=== PATIENT | female | born 1940 | race Caucasian/White ===

== ENCOUNTER 2024-01-27 10:02 | Inpatient (IN) | payer MEDICARE, OTHER ==
[2024-01-27] VITALS (8 sets, daily range): BP systolic 115–136; BP diastolic 52–65
[~2024-01-27] VITALS: Ht 167.6 cm; Wt 60.2 kg
[2024-01-27] MEDS ORDERED: HydrALAZINE HCl 20 MG / ML 1ML Vial IV ONE (10:20)
[2024-01-27] MEDS ORDERED: Ondansetron HCl 2 MG / ML 2ML Vial IV ONE (10:20)
[2024-01-27] MEDS ORDERED: Metoclopramide HCl 5MG / ML 2ML Vial IV ONE (10:25)
[2024-01-27 10:29] LABS: BASOPHILS ABSOLUTE AUTO 0.06 K/mm3 (0.00-0.23); BASOPHILS PERCENT AUTO 1 % (0-2); EOSINOPHILS ABSOLUTE AUTO 0.13 K/mm3 (0.00-0.68); EOSINOPHILS PERCENT AUTO 1 % (0-6); Hematocrit 44.3 % (33.0-51.0); Hemoglobin 14.6 g/dL (11.5-16.0); IMMATURE GRAN ABSOLUTE AUTO 0.07 K/mm3 (0.00-0.10); IMMATURE GRAN PERCENT AUTO 1 % (0-1); LYMPHOCYTES ABSOLUTE AUTO 1.14 K/mm3 (0.84-5.20); LYMPHOCYTES PERCENT AUTO 9 % (21-46); MONOCYTES ABSOLUTE AUTO 0.67 K/mm3 (0.16-1.47); MONOCYTES PERCENT AUTO 6 % (4-13); Mean Corpuscular HGB 31.1 pg (26.0-34.0); Mean Corpuscular Volume 95 fL (80-100); Mean Platelet Volume 11.3 fL (9.1-12.4); NEUTROPHILS PERCENT AUTO 83 % (41-73); Platelet Count 192 K/mm3 (150-400); RDW Coefficient Variation 12.8 % (11.7-14.2); RDW Standard Deviation 44.4 fL (35.1-46.3); Red Blood Cell Count 4.69 M/mm3 (3.80-5.20); White Blood Cell Count 12.07 K/mm3 (4.00-11.30)
[2024-01-27] MEDS ORDERED: EUTHYROX75 MC1 PO (10:36)
[2024-01-27] MEDS ORDERED: KLONOPIN0.5 M9 PO (10:36)
[2024-01-27 10:46] LABS: Albumin, Blood 3.9 g/dL (3.4-5.0); Albumin/Globulin Ratio 1.1 (0.8-1.8); Bilirubin, Total 0.6 mg/dL (0.1-1.0); Bun/Creatinine Ratio 24.4 (12.0-20.0); Calcium, Blood 8.8 mg/dL (8.5-10.1); Creatinine, Blood 0.74 mg/dL (0.40-1.00); Globulin, Blood 3.6 g/dL (2.2-4.0); Potassium, Blood 4.2 mmol/L (3.5-5.5); Total Protein, Blood 7.5 g/dL (6.4-8.2)
[2024-01-27] MEDS ORDERED: Midazolam HCl 1MG / ML 2ML Vial IV ONE (11:15)
[2024-01-27] MEDS ORDERED: Droperidol 5 mg/2 ml Vial IV ONE (13:05)
[2024-01-27] MEDS ORDERED: FLU VACC TS2024-25(6MOS UP)/PF 45 MCG/0.5 ML SYRINGE IM ONE (13:25)
[2024-01-27] MEDS ORDERED: LORazepam 1 MG Tab PO PRN (15:35)
[2024-01-27] MEDS ORDERED: ClonazePAM 0.5 MG Tab PO PRN (16:25)
[2024-01-27] MEDS ORDERED: HydrALAZINE HCl 20 MG / ML 1ML Vial IV PRN (16:40)
--- NOTE | 2024-01-27 18:37 | NUR ---
SHIFT SUMMARY PT A&O X4, SELF/PLACE/SITUATION/TIME, PT OBEYS COMMANDS, ABLE TO MAKE NEEDS KNOWN. PT REPORTS DIZZINESS AND NAUSEA WITH ACTIVITY, LYING FLAT SEEMS TO BE THE ONLY THING THAT EASES THOSE SYMPTOMS, PERRLA WNL, NIH STROKE SCALE 0. LUNG CLEAR T/O, PT SPO2 GREATER THAN 95% ON RA. CONTINOUS CARDIAC MONITORING, SINUS RHYTHM, RATE 70-80'S, BP ELEVATED UPON ADMISSION AND TRENDING DOWN, UPON ARRIVED TO THE UNIT BP ELEVATED AND ATIVAN GIVEN TO TOLERATE MRI DUE TO CLAUSTROPHOBIA, BP WNL AFTER SETTLING BACK INTO ROOM. PUREWICK IN PLACE CONNECTED TO LOW SUCTION. SCD'S TO BLE. PT RESTING IN BED NO RESPRITORY DISTRESS NOTED. CALL LIGHT IN REACH, BED LOWEST POSITION, AWAITING TO GIVE REPORT TO COMING RN. PT REPORTED THAT HER MEDICATIONS AT HOME WERE MAKING HER FEEL DIZZY AND CAUSING HYPOTENTION, AND THAT IS HER REASON FOR STOPPING SOME OF HER MEDICATIONS. PT HAD CHEST X-RAY, HEAD CT, AND
[2024-01-27] MEDS ORDERED: METOPROLOL SUCC25 MG PO (21:49)
[2024-01-27] MEDS ORDERED: LOSA50 PO (21:50)
--- NOTE | 2024-01-27 23:16 | NUR ---
2ML AIR REMOVED, SITE REMAINS UNCHANGED. NO S/S BLEEDING/HEMATOMA.
[2024-01-28] VITALS (10 sets, daily range): BP systolic 122–176; BP diastolic 61–96
--- NOTE | 2024-01-28 00:26 | NUR ---
PT HAD ONE EPISODE OF EMESIS AFTER BECOMING DIZZY WHEN HOB RAISED TO TAKE SIPS OF WATER.
--- NOTE | 2024-01-28 00:38 | NUR ---
CALL PLACED TO DR. ROBERTS REGARDING PT NAUSEA/VOMITING. ORDER RECEIVED FOR 1 TIME DOSE OF 10MG IV METOCLOPRAMIDE.
[2024-01-28] MEDS ORDERED: Metoclopramide HCl 5MG / ML 2ML Vial IV ONE ×2 (00:40→01:00)
[2024-01-28] MEDS ORDERED: Metoclopramide HCl 5MG / ML 2ML Vial IV PRN (01:00)
--- NOTE | 2024-01-28 03:24 | NUR ---
PT REPORTS IMPROVED NAUSEA AND NO EMESIS @0145. PT DOES ENDORSE ANXIETY AND IS GIVEN MEDICATIONS FOR THAT.
--- NOTE | 2024-01-28 03:25 | NUR ---
PT NOW RESTING COMFORTABLY WITH EYES CLOSED. VISIBLE RESPIRATIONS SEE WNL.
[2024-01-28 05:03] LABS: BASOPHILS ABSOLUTE AUTO 0.03 K/mm3 (0.00-0.23); BASOPHILS PERCENT AUTO 0 % (0-2); EOSINOPHILS ABSOLUTE AUTO 0.03 K/mm3 (0.00-0.68); EOSINOPHILS PERCENT AUTO 0 % (0-6); Hemoglobin 13.8 g/dL (11.5-16.0); IMMATURE GRAN ABSOLUTE AUTO 0.06 K/mm3 (0.00-0.10); IMMATURE GRAN PERCENT AUTO 0 % (0-1); LYMPHOCYTES ABSOLUTE AUTO 1.15 K/mm3 (0.84-5.20); LYMPHOCYTES PERCENT AUTO 8 % (21-46); MONOCYTES ABSOLUTE AUTO 1.11 K/mm3 (0.16-1.47); MONOCYTES PERCENT AUTO 8 % (4-13); Mean Corpuscular HGB 31.5 pg (26.0-34.0); Mean Corpuscular HGB Conc 32.1 g/dL (31.5-36.5); Mean Corpuscular Volume 98 fL (80-100); Mean Platelet Volume 12.3 fL (9.1-12.4); NEUTROPHILS ABSOLUTE AUTO 11.38 K/mm3 (1.96-9.15); NEUTROPHILS PERCENT AUTO 83 % (41-73); Platelet Count 151 K/mm3 (150-400); RDW Standard Deviation 47.4 fL (35.1-46.3); Red Blood Cell Count 4.38 M/mm3 (3.80-5.20); White Blood Cell Count 13.76 K/mm3 (4.00-11.30)
[2024-01-28 05:41] LABS: Albumin, Blood 3.7 g/dL (3.4-5.0); Albumin/Globulin Ratio 1.1 (0.8-1.8); Bilirubin, Total 0.6 mg/dL (0.1-1.0); Calcium, Blood 9.1 mg/dL (8.5-10.1); Creatinine, Blood 1.08 mg/dL (0.40-1.00); Globulin, Blood 3.5 g/dL (2.2-4.0); Potassium, Blood 4.4 mmol/L (3.5-5.5); Total Protein, Blood 7.2 g/dL (6.4-8.2)
[2024-01-28] MEDS ORDERED: Levothyroxine Sodium 0.075 MG Tab PO SCH (06:00)
--- NOTE | 2024-01-28 06:34 | NUR ---
PT VITAL SIGNS REMAINED STABLE THROUGH THE SHIFT, NO PRN ANTIHYPERTENSIVE GIVEN. PT WAS GIVEN REGLAN X1 AND CLONZEPAM X1 FOR NAUSEA AND ANXIETY. PT WAS ABLE TO REST AFTER THOSE MEDICATIONS. PT CONTINUES TO ENDORSE VERTIGO. PT MAEW AND HAS GOOD PULSES IN ALL EXTREMITIES. PT CONTINUES TO HAVE NYSTAGMUS B/L EYES. DIZZINESS INCREASES WHEN PATIENT HOB IS ELEVATED. PT HAD URINARY RETENTION AND WAS STRAIGHT CATHED X1 WITH GOOD OUTPUT. FEMALE RN SHEET ROCK FINISHER AT BEDSIDE WHEN STRAIGHT CATH PERFORMED BY THIS RN.
[2024-01-28] MEDS ORDERED: Enoxaparin 40 MG/0.4 ML SYR SC SCH (09:00)
[2024-01-28] MEDS ORDERED: B-121000 MC3 PO (09:50)
[2024-01-28] MEDS ORDERED: VITAMIN D325 MC3 PO (09:53)
[2024-01-28] MEDS ORDERED: MELATONIN5 M1 PO (09:54)
[2024-01-28] MEDS ORDERED: HydrALAZINE HCl 20 MG / ML 1ML Vial IV PRN (12:10)
[2024-01-28] MEDS ORDERED: Losartan Potassium 50 MG Tab PO SCH (13:00)
[2024-01-28] MEDS ORDERED: Acetaminophen 325 MG TABLET PO PRN (13:30)
--- NOTE | 2024-01-28 13:48 | NUR ---
CODE STATUS CLARIFICATION - DNR/DNI REVIEWED OFELIA'S PREVIOUSLEY COMPLETED ADVANCE DIRECTIVE. OFELIA CONFIRMED HER ADVANCE DIRECTIVE IS UP TO DATE. PHOTO COPY OF AD IS ON THE CHART. THIS PC RN REVIEWED CPR AND DNR IN DEPTH WITH PT. OFELIA SPOKE OF WHEN HER HAD CARDIAC ARREST, HE NEEDED THE PADDLES 3 TIMES AND HIS RIBS WERE BROKEN. SHE ELECTED FOR DNR. PT STATED, "MY DAUGHTER ALREADY . MY SON IS PARTIALLY DISABLED. I DON'T WANT TO BE A BURDEN ON HIM. I KNOW HE WOULD TRY TO TAKE CARE OF ME. HE SHOULDN'T." ORDER RCV'D FROM PROVIDER FOR DNR. ORDER PLACED ACCORDINGLY. PRIMARY RN AND POUND KEEPER UPDATED. WILL FILL OUT A POLST FORM WHEN PT IS ABLE TO TOLERATE SITTING UPRIGHT D/T NAUSEA.
[2024-01-28] MEDS ORDERED: NS 1,000 ML IV SCH (18:30)
--- NOTE | 2024-01-28 18:48 | NUR ---
SHIFT SUMMARY: PT HAS BEEN A&Ox4, COOPERATIVE W/CARE, ABLE TO MAKE NEEDS KNOWN. PT C/O DIZZINESS T/OUT DAY, STATES IT IS MINIMAL AT REST BUT WORSENS QUICKLY WITH ANY TYPE OF MOVEMENT, DECLINES TO SIT UP OR EXIT BED. PHYSICAL THERAPY ZEE ORDERED THIS SHIFT. PT W/ONE EPISODE EMESIS THIS AM, MEDICATED PER EMAR. PT DENIES SOB OR CP, MAINTAINS O2 SATS >93% ON RA AND SR ON MONITOR W/RATE 80s. LOW PO INTAKE THIS SHIFT, NO URINE OUTPUT, NO STRAIGHT CATH DUE TO NOT MEETING PARAMETERS FOR CATHETERIZATION, PROVIDER AWARE, NEW ORDERS PLACED FOR STRAIGHT CATH PARAMETERS AND IV FLUIDS. PT CURRENTLY REQUESTING TO GET OOB TO BSC TO ATTEMPT VOIDING.
--- NOTE | 2024-01-28 21:20 | NUR ---
ATTEMPTED ORTHOSTATIC VITAL SIGNS. PT TOLERATED SITTING THOUGH DID ENDORSE INCREASED VERTIGO AND ONSET OF NAUSEA. PT DID HAVE A LEFT SIDED LEAN. PT ATTEMPTED TO STAND VERTIGO AND NAUSEA INCREASED. PT UNABLE TO MAINTAIN STANDING UNASSISTED.
[2024-01-29] VITALS (25 sets, daily range): BP systolic 94–200; BP diastolic 42–85
[2024-01-29 04:32] LABS: BASOPHILS ABSOLUTE AUTO 0.02 K/mm3 (0.00-0.23); BASOPHILS PERCENT AUTO 0 % (0-2); EOSINOPHILS ABSOLUTE AUTO 0.32 K/mm3 (0.00-0.68); EOSINOPHILS PERCENT AUTO 4 % (0-6); Hematocrit 40.5 % (33.0-51.0); IMMATURE GRAN ABSOLUTE AUTO 0.03 K/mm3 (0.00-0.10); IMMATURE GRAN PERCENT AUTO 0 % (0-1); LYMPHOCYTES ABSOLUTE AUTO 1.47 K/mm3 (0.84-5.20); LYMPHOCYTES PERCENT AUTO 18 % (21-46); MONOCYTES ABSOLUTE AUTO 0.55 K/mm3 (0.16-1.47); MONOCYTES PERCENT AUTO 7 % (4-13); Mean Corpuscular HGB 31.1 pg (26.0-34.0); Mean Corpuscular HGB Conc 32.1 g/dL (31.5-36.5); Mean Corpuscular Volume 97 fL (80-100); Mean Platelet Volume 12.3 fL (9.1-12.4); NEUTROPHILS ABSOLUTE AUTO 5.58 K/mm3 (1.96-9.15); NEUTROPHILS PERCENT AUTO 70 % (41-73); Platelet Count 163 K/mm3 (150-400); RDW Standard Deviation 46.3 fL (35.1-46.3); Red Blood Cell Count 4.18 M/mm3 (3.80-5.20); White Blood Cell Count 7.97 K/mm3 (4.00-11.30)
[2024-01-29 04:52] LABS: Albumin, Blood 3.2 g/dL (3.4-5.0); Bilirubin, Total 0.6 mg/dL (0.1-1.0); Bun/Creatinine Ratio 25.8 (12.0-20.0); Calcium, Blood 8.6 mg/dL (8.5-10.1); Creatinine, Blood 0.89 mg/dL (0.40-1.00); Globulin, Blood 3.1 g/dL (2.2-4.0); Potassium, Blood 3.1 mmol/L (3.5-5.5); Total Protein, Blood 6.3 g/dL (6.4-8.2)
--- NOTE | 2024-01-29 06:47 | NUR ---
PT STABLE THROUGHOUT THE NIGHT, VITAL SIGNS STAYED WNL. PT DOES CONTINUE TO HAVE VERTIGO AND MILD NAUSEA. NO EMESIS THIS SHIFT. PT REMAINS AOX4, CALM AND COOPERATIVE. IVF CONTINUE W/O PROBLEM. PT WAS ABLE TO TRANSFER TO BSC WITH 1 ASSIST AND HAD A BM AND URINARY OUTPUT.
--- NOTE | 2024-01-29 10:23 | NUR ---
NURSE NOTE CALLED DREliazar ABOUT PATIENT B/P CHANGES AND REPORTS OF CHEST PAIN. GAVE VERBAL ORDER FOR STAT TROP, AND SUBLINGUAL NITRO.
[2024-01-29] MEDS ORDERED: Nitroglycerin 0.4 MG SUBL SL PRN (10:30)
[2024-01-29] MEDS ORDERED: Aspirin 81 MG Chew PO SCH (11:20)
[2024-01-29 11:57] LABS: Mean Platelet Volume 11.5 fL (9.1-12.4); Platelet Count 190 K/mm3 (150-400)
[2024-01-29] MEDS ORDERED: Potassium Chloride 20 MEQ TabCR PO SCH (12:00)
[2024-01-29 12:13] LABS: International Normalized Ratio 1.01; Prothrombin Time Results 10.8 Sec (9.7-11.5)
[2024-01-29] MEDS ORDERED: Dose Adjust by Pharmacy XX STA (12:18)
[2024-01-29] MEDS ORDERED: Heparin Sodium,Porcine/0.5 NS 500 ML IV SCH (12:20)
[2024-01-29 12:25] LABS: LDL/HDL RATIO 2.4; Very Low Density Lipoprot Chol 17 mg/dL (6-32)
[2024-01-29 12:26] LABS: CHOL/HDL RATIO 3.7; Cholesterol 275 mg/dL (50-200); HDL Cholesterol 75 mg/dL (>39); Low Density Lipoprotein Chol 183 mg/dL (0-110); Triglycerides 86 mg/dL (30-160)
--- NOTE | 2024-01-29 13:15 | NUR ---
NURSE NOTE CARDIOLOGY AT BEDSIDE. CALL LIGHT IN REACH.
[2024-01-29] MEDS ORDERED: Heparin Sodium 1000 Units/ML 10ML MDV ONE ×2 (13:23→13:47)
[2024-01-29] MEDS ORDERED: Verapamil HCL 2.5 MG/ML 2ML Injection ONE (13:23)
[2024-01-29] MEDS ORDERED: NS 1,000 ML IV ONE ×2 (13:23→13:47)
[2024-01-29] MEDS ORDERED: Nitroglycerin 2 MG/20 ML BTL ONE (13:24)
[2024-01-29] MEDS ORDERED: NS 250 ML IV ONE (13:24)
[2024-01-29] MEDS ORDERED: Midazolam HCl 1MG / ML 2ML Vial ONE ×2 (13:25→13:45)
[2024-01-29] MEDS ORDERED: FentaNYL Citrate 50 MCG/ML 2 ML Injection ONE ×2 (13:25→13:44)
[2024-01-29] MEDS ORDERED: NiCARdipine HCL 1,000 MCG/5 ML SYR ONE (13:36)
[2024-01-29] MEDS ORDERED: Tirofiban HCL Monohydrate 3.75 MG/15 ML Vial ONE (13:43)
[2024-01-29] MEDS ORDERED: Phenylephrine HCl 100 MCG/ML-NS 10MLSYR (1MG/10ML) ONE (13:43)
[2024-01-29] MEDS ORDERED: Atropine Sulfate 0.1 MG/ML 10ML SYR ONE (13:44)
[2024-01-29] MEDS ORDERED: Ondansetron HCl 2 MG / ML 2ML Vial ONE (13:49)
[2024-01-29] MEDS ORDERED: NS 1,000 ML IV SCH (14:55)
[2024-01-29] MEDS ORDERED: AmLODIPine Besylate 5 MG Tab PO SCH (15:00)
--- NOTE | 2024-01-29 18:47 | NUR ---
SHIFT SUMMARY AT APROX 1000 PT REPORTED 6/10 CHEST PAIN RADIATING DOWN HER L ARM. SEE DOCUMENTED VS. EKG WAS OBTAINED DEMONSTRATING ST CHANGES, PT WAS SYMPTOMATIC AND HYPOTENSIVE. PT LAID FLAT IN BED AND BP MONITORING CHANGED TO Q [address] OKEEFE NOTIFIED, ORDERS GIVEN. 2 DOSES OF NITRO RESOLVED PT'S CHEST PAIN W/O CAUSING FURTHER HYPOTENSION. ORDERS FOR SERIAL TROPS PLACED, ALONG WITH HEPARIN GTT, ECHO, ASA AND CARDIOLOGY CONSULT. 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 NO INTERVENTIONS REQUIRED DURING PROCEDURE, PT RETURNED W R RAD TR BAND, WHICH IS FULLY RECOVERED AT THIS TIME. PT DENIES ANY FURTHER CHEST PAIN THIS SHIFT. CONTINUES TO HAVE SEVERE DIZZINESS, NAUSEA AND VOMITING. 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 PT HAS POOR PO INTAKE. BLADDER SCAN 475 THIS EVENING, PT ABLE TO VOID 300MLS. NO CONCERNS AT THIS TIME. PT IS ABLE TO USE CALL LIGHT FOR NEEDS, CALL LIGHT IN REACH. WILL CONTINUE TO MONITOR AND GIVE REPORT TO NOC SHIFT RN.
[2024-01-29] MEDS ORDERED: Ezetimibe 10 MG Tab PO SCH (21:00)
[2024-01-29] MEDS ORDERED: Rosuvastatin Calcium 10 MG Tab PO SCH (21:00)
[2024-01-29] MEDS ORDERED: Atorvastatin 40 MG Tab PO SCH (21:00)
[2024-01-30] VITALS (12 sets, daily range): BP systolic 91–182; BP diastolic 46–118
[2024-01-30 03:53] LABS: Hematocrit 38.1 % (33.0-51.0); Hemoglobin 12.5 g/dL (11.5-16.0); Mean Corpuscular HGB Conc 32.8 g/dL (31.5-36.5); Mean Corpuscular Volume 95 fL (80-100); Mean Platelet Volume 11.8 fL (9.1-12.4); Platelet Count 211 K/mm3 (150-400); RDW Standard Deviation 45.5 fL (35.1-46.3); Red Blood Cell Count 4.03 M/mm3 (3.80-5.20); White Blood Cell Count 9.25 K/mm3 (4.00-11.30)
[2024-01-30 04:16] LABS: Bun/Creatinine Ratio 24.2 (12.0-20.0); Creatinine, Blood 0.74 mg/dL (0.40-1.00); Potassium, Blood 3.7 mmol/L (3.5-5.5)
--- NOTE | 2024-01-30 06:29 | NUR ---
PT CONTINUES TO HAVE VERTIGO AND NAUSEA, NOT SEVERE INITIALLY PRESENTED BUT STILL PRESENT. PT DID HAVE ANTI-EMETICS X2. PT HAD ONE EPISODE OF RETCHING W/O EMESIS. PT HAD JUST BEEN MEDICATED WITH ANTI-EMETICS AND IV HYDRALAZINE PRIOR TO RETCHING. PT GIVEN LEMON/SAC AND [place] TO SIP ON AND THAT IMPROVED FEELING OF NAUSEA. NO FURTHER RETCHING OR EMESIS AFTER THIS. PT HAS BEEN SIPPING ON WATER AND ENSURE THROUGHOUT THE NIGHT. PT DID HAVE GOOD URINE OUTPUT DURING SHIFT. PT DID HAVE ONE EPISODE OF HTN AND WAS MEDICATED FOR THAT WE GOOD RESULTS, BP IS NOW WNL. PT RIGHT RADIAL ANGIO SITE RECOVERED AND COVERED WITH TEGADERM. PT DOES HAVE SOME BRUISING AROUND ANGIO SITE, NO S/S BLEEDING OR HEMATOMA. TISSUE IS SOFT AT AROUND SITE AND RADIAL PULSE PALPABLE ABOVE AND BELOW SITE. PT TOLERATED IVF AND THEN WAS SALINE LOCKED PER ORDER.
[2024-01-30] MEDS ORDERED: Aspirin 81 MG TabEC PO SCH (09:00)
[2024-01-30] MEDS ORDERED: LORazepam 2 MG/ML 1ML Injection IV ONE (11:05)
--- NOTE | 2024-01-30 11:11 | NUR ---
NURSE NOTE PT FRIEND ISABELL TOOK PATIENTS CAR KEYS, AND EARRINGS WITH HER AFTER A VISIT. CALL LIGHT IN REACH.
[2024-01-30] MEDS ORDERED: Morphine Sulfate 20 MG/1ML 1 ML Oral Syringe SL PRN (11:35)
[2024-01-31] VITALS (7 sets, daily range): BP systolic 102–191; BP diastolic 48–83
--- NOTE | 2024-01-31 05:28 | NUR ---
SHIFT SUMMARY PT A&O X4, ABLE TO MAKE NEEDS KNOWN. NO ACUTE EVENTS THIS SHIFT. VSS, AFEBRILE, SPO2 >93% ON RA, SBP <160 THIS SHIFT. NAUSEA AND PAIN MEDICATED PER EMAR. PT IS 1 PERSON ASSIST TO BSC. R RADIAL SITE IS FREE FROM BLEEDING, HEMATOMA, AREA IS NON TENDER. PT STILL HAS SOME VERTIGO WITH MOVEMENT. PT IS RESTING QUIETLY IN BED, BREATHING IS EVEN AND UNLABORED, CALL LIGHT IN REACH.
[2024-01-31] MEDS ORDERED: Meclizine HCl 25 MG Tab PO SCH (12:05)
--- NOTE | 2024-01-31 16:38 | NUR ---
SHIFT SUMMARY PT HAS BEEN RESTING IN BED THROUGHOUT THE SHIFT. SHE CONTINUES TO HAVE HTN WHICH REQUIRED PRN HYDRALAZINE THIS AFTERNOON. HER DIZZINESS PERSISTS. SHE RECEIVED ONE DOSE OF MECLIZINE AND SHE SAYS IT MIGHT HAVE HELPED A LITTLE. LUNGS REMAIN CLEAR, RA. GETTING UP TO THE COMMODE TO VOID. PT TOOK A SHOWER THIS AFTERNOON WITH THE ASSISTANCE OF THE AIDE. PT TO TRANSFER UP TO MEDICAL FLOOR. AWAITING BED ASSIGNMENT.
--- NOTE | 2024-01-31 17:11 | NUR ---
TRANSFER REPORT GIVEN TO PAGE HANKINS. PT TRANSFERRED VIA WC. ALL BELONGINGS MOVED WITH PT.
--- NOTE | 2024-01-31 17:41 | NUR ---
PATIENT TRANSFERRED FROM PCU20, ALERT AND ORIENTED MAKES NEEDS KNOWN, CALL LIGHT WITH IN REACH
[2024-01-31] MEDS ORDERED: AmLODIPine Besylate 5 MG Tab PO SCH (21:00)
[2024-02-01 03:57] VITALS: BP 137/83
--- NOTE | 2024-02-01 05:34 | NUR ---
NEW ORDER FOR LAB RECEIVED FROM ON-CALL HOSPITALIST . URINALISYS D/T PT VOIDING BLOOD. ENTERED TO [employer] BY THIS BEAM DYER RECESSED VAT. PT IS VOIDING <20MLS RED COLOR URINE. PT REPORTS STINING,URGENCY, AND PAIN WHEN ATTEMPTING TO URINATE AT BEDSIDE COMMODE. POST VOID BLADDER SCAN THIS MORNING SHOWS 6MLS. NO ADDITIONAL NEW ORDERS AT THIS TIME.
--- NOTE | 2024-02-01 05:37 | NUR ---
SHIFT SUMMARY PT C/O H/A 09/23. MEDICATED WITH PRN TYLENOL PER PT REQUEST. ONE EPISODE OF NAUSEA AT HS: MEDICATED WITH REGLAN WITH GOOD EFFECTIVNESS. NO EMESIS ON THIS SHIFT. PT C/O STINGING AND PAIN WHEN URINATING. PT VOIDING RED COLOR URINE. THIS CATALOGUE ILLUSTRATOR CONTACTED ON-CALL HOSPITALIST AND LAB ORDER ENTERED TO [employer], (SEE PREVIOUS NOTE.) HELD HS SCHEDULED BP MEDICATION D/T DIASTOLIC BP 48. BED AT THE LOWEST POSITION,CALL LIGHT W/I REACH. NO ACUTE EVENTS DURING THIS SHIFT.
[2024-02-01 07:44] VITALS: BP 174/73
[2024-02-01 09:26] LABS: Source, Urine Voided
[2024-02-01 09:42] LABS: Appearance, Urine Cloudy (Clear); Bilirubin, Urine Neg (Neg); Blood, Urine 5+ (Neg); Color, Urine Amber (P-Yellow); Glucose Qualitative, Urine Neg (Neg); Ketones, Urine Neg (Neg); Leukocyte Esterase, Urine 3+ (Neg); Nitrite, Urine Pos (Neg); Protein, Urine 3+ (Neg); Specific Gravity, Urine 1.015 (1.003-1.022); Urobilinogen, Urine NORM (Normal)
[2024-02-01 10:37] LABS: Red Blood Cells, Urine TNTC /hpf (0-2); White Blood Cells, Urine 25-50 /hpf (0-5)
[2024-02-01 10:39] LABS: Bacteria Many /hpf; Squamous Epithelial Cells Rare /hpf (Few); Transitional Epithelial Cells Rare /hpf (0-Rare)
[2024-02-01 11:23] LABS: BASOPHILS ABSOLUTE AUTO 0.06 K/mm3 (0.00-0.23); BASOPHILS PERCENT AUTO 1 % (0-2); EOSINOPHILS ABSOLUTE AUTO 0.84 K/mm3 (0.00-0.68); EOSINOPHILS PERCENT AUTO 8 % (0-6); Hematocrit 40.9 % (33.0-51.0); Hemoglobin 13.3 g/dL (11.5-16.0); IMMATURE GRAN ABSOLUTE AUTO 0.06 K/mm3 (0.00-0.10); IMMATURE GRAN PERCENT AUTO 1 % (0-1); LYMPHOCYTES ABSOLUTE AUTO 1.29 K/mm3 (0.84-5.20); LYMPHOCYTES PERCENT AUTO 13 % (21-46); MONOCYTES ABSOLUTE AUTO 1.17 K/mm3 (0.16-1.47); MONOCYTES PERCENT AUTO 12 % (4-13); Mean Corpuscular HGB 30.9 pg (26.0-34.0); Mean Corpuscular HGB Conc 32.5 g/dL (31.5-36.5); Mean Corpuscular Volume 95 fL (80-100); Mean Platelet Volume 12.1 fL (9.1-12.4); NEUTROPHILS ABSOLUTE AUTO 6.59 K/mm3 (1.96-9.15); NEUTROPHILS PERCENT AUTO 66 % (41-73); Platelet Count 202 K/mm3 (150-400); RDW Coefficient Variation 12.8 % (11.7-14.2); Red Blood Cell Count 4.31 M/mm3 (3.80-5.20); White Blood Cell Count 10.01 K/mm3 (4.00-11.30)
[2024-02-01 11:47] VITALS: BP 150/76
[2024-02-01 11:48] LABS: Albumin, Blood 3.4 g/dL (3.4-5.0); Albumin/Globulin Ratio 1.1 (0.8-1.8); Bilirubin, Total 0.4 mg/dL (0.1-1.0); Bun/Creatinine Ratio 25.2 (12.0-20.0); Calcium, Blood 9.3 mg/dL (8.5-10.1); Creatinine, Blood 0.83 mg/dL (0.40-1.00); Globulin, Blood 3.2 g/dL (2.2-4.0); Potassium, Blood 4.4 mmol/L (3.5-5.5); Total Protein, Blood 6.6 g/dL (6.4-8.2)
[2024-02-01] MEDS ORDERED: Ciprofloxacin 500 MG Tab PO SCH (12:00)
[2024-02-01] MEDS ORDERED: LOSA50 PO (12:49)
[2024-02-01] MEDS ORDERED: AMLO5 PO (12:50)
[2024-02-01] MEDS ORDERED: CIPR500 PO (12:51)
[2024-02-01] MEDS ORDERED: Aspir 8181 MG PO (12:51)
[2024-02-01] MEDS ORDERED: MECL25 PO (12:52)
[2024-02-01] MEDS ORDERED: Crestor40 MG PO (12:53)
--- NOTE | 2024-02-01 14:45 | NUR ---
PT DISCHARGED TO HOME. DISCHARGE INSTRUCTIONS PROVIDED AND EDUCATED ON. MEDS FAXED TO [facility] ON [address]. PT WHEELED DOWN TO THE ER AND PICKED UP BY FRIEND.
--- NOTE | 2024-02-01 15:43 | NUR ---
MET WITH PATIENT TO REVIEW POLST AND HAVE HER SIGN. COPIES SENT TO MEDICAL RECORDS AND FAXED TO POLST REGIST[facility]. DISCUSSED SYMPTOMS. PAINFUL URINATION AND NAUSEA HAD IMPROVED GREATLY. PC WILL CONTINUE TO FOLLOW
== END 2024-02-01 14:51 | disposition home or self-care (01) | DRG 281 ==
LOC: ER 10:02 → PCU 13:21 → MEDS 01-31 16:59 → ENPENDDIS 02-01 12:38 → MEDS 02-01 14:51
PROVIDERS: Emergency Medicine; Internal Medicine; Internal Medicine Cardiovascular Disease; ADMIT Internal Medicine
PROC: B2111ZZ Fluoroscopy of Multiple Coronary Arteries using Low Osmolar Contrast (ICD-10-PCS; principal; 2024-01-29)
PROC: 4A023N7 Measurement of Cardiac Sampling and Pressure, Left Heart, Percutaneous Approach (ICD-10-PCS; 2024-01-29)
DX: I21.4 Non-ST elevation (NSTEMI) myocardial infarction (principal); I16.1 Hypertensive emergency; N39.0 Urinary tract infection, site not specified; E03.9 Hypothyroidism, unspecified; K21.9 Gastro-esophageal reflux disease without esophagitis; I27.20 Pulmonary hypertension, unspecified; E78.5 Hyperlipidemia, unspecified; F41.8 Other specified anxiety disorders; Z66 Do not resuscitate; R33.9 Retention of urine, unspecified; Z88.8 Allergy status to other drugs, medicaments and biological substances; I10 Essential (primary) hypertension; Z88.5 Allergy status to narcotic agent; Z88.2 Allergy status to sulfonamides; M81.0 Age-related osteoporosis without current pathological fracture; Z98.49 Cataract extraction status, unspecified eye; Z90.710 Acquired absence of both cervix and uterus; Z90.12 Acquired absence of left breast and nipple; Z90.89 Acquired absence of other organs; Z79.899 Other long term (current) drug therapy; Z79.890 Hormone replacement therapy
CPT/HCPCS: 36415; 51701; 70450; 70551; 71045; 76937; 80048; 80053; 80061; 81001; 83735; 84484; 85025; 85027; 85049; 85610; 85730; 87077; 87086; 87147; 87186; 93005; 93010; 93306; 93458; 96374; 96375; 97112; 97116; 97162; 97530; 99152; 99153; 99285-25; A9270; C1769; C1894; J0360; J0461; J1644; J1650; J1790; J2060; J2250; J2371; J2405; J2765; J3010; J3246; J7030; J7050; Q9967

== ENCOUNTER 2024-02-12 13:37 | Inpatient (IN) | payer MEDICARE, OTHER ==
[~2024-02-12] VITALS: Ht 167.6 cm; Wt 57.8 kg
[~2024-02-12 13:37] MED LIST: AMLO5 PO; Aspir 8181 MG PO; B-121000 MC3 PO; CIPR500 PO; Crestor40 MG PO; EUTHYROX75 MC1 PO; KLONOPIN0.5 M9 PO; LOSA50 PO; MECL25 PO; MELATONIN5 M1 PO; METOPROLOL SUCC25 MG PO; VITAMIN D325 MC3 PO
[2024-02-12 14:39] LABS: BASOPHILS ABSOLUTE AUTO 0.04 K/mm3 (0.00-0.23); BASOPHILS PERCENT AUTO 0 % (0-2); EOSINOPHILS PERCENT AUTO 1 % (0-6); Hematocrit 39.9 % (33.0-51.0); Hemoglobin 13.2 g/dL (11.5-16.0); IMMATURE GRAN ABSOLUTE AUTO 0.08 K/mm3 (0.00-0.10); IMMATURE GRAN PERCENT AUTO 1 % (0-1); LYMPHOCYTES ABSOLUTE AUTO 0.98 K/mm3 (0.84-5.20); LYMPHOCYTES PERCENT AUTO 7 % (21-46); MONOCYTES ABSOLUTE AUTO 1.29 K/mm3 (0.16-1.47); MONOCYTES PERCENT AUTO 9 % (4-13); Mean Corpuscular HGB 31.4 pg (26.0-34.0); Mean Corpuscular HGB Conc 33.1 g/dL (31.5-36.5); Mean Corpuscular Volume 95 fL (80-100); Mean Platelet Volume 11.2 fL (9.1-12.4); NEUTROPHILS ABSOLUTE AUTO 11.71 K/mm3 (1.96-9.15); NEUTROPHILS PERCENT AUTO 82 % (41-73); Platelet Count 212 K/mm3 (150-400); RDW Coefficient Variation 12.4 % (11.7-14.2); RDW Standard Deviation 43.4 fL (35.1-46.3)
[2024-02-12 15:23] LABS: Albumin, Blood 3.6 g/dL (3.4-5.0); Albumin/Globulin Ratio 0.9 (0.8-1.8); Bilirubin, Total 0.5 mg/dL (0.1-1.0); Bun/Creatinine Ratio 16.8 (12.0-20.0); Calcium, Blood 9.8 mg/dL (8.5-10.1); Creatinine, Blood 1.01 mg/dL (0.40-1.00); Potassium, Blood 4.1 mmol/L (3.5-5.5); Total Protein, Blood 7.6 g/dL (6.4-8.2)
[2024-02-12] MEDS ORDERED: Lactated Ringer's 1,000 ML IV SCH (21:35)
[2024-02-12] MEDS ORDERED: Morphine Sulfate 4 MG/1 ML Injection IV ONE (21:35)
[2024-02-12] MEDS ORDERED: Ondansetron HCl 2 MG / ML 2ML Vial IV ONE (21:35)
[2024-02-12] MEDS ORDERED: NS 1,000 ML IV SCH (21:35)
[2024-02-12] MEDS ORDERED: Vancomycin HCL 1,250 MG in NS 250 ML IV ONE (21:40)
[2024-02-12] MEDS ORDERED: CefTRIAXone Sodium 1,000 MG in NS 100 ML IV ONE (21:45)
[2024-02-12 22:00] LABS: Source, Urine Foley catheter
[2024-02-12] MEDS ORDERED: Ondansetron HCl 2 MG / ML 2ML Vial IV PRN (22:00)
[2024-02-12] MEDS ORDERED: Acetaminophen 325 MG TABLET PO PRN (22:00)
[2024-02-12] MEDS ORDERED: FLU VACC TS2024-25(6MOS UP)/PF 45 MCG/0.5 ML SYRINGE IM ONE (22:00)
[2024-02-12 22:03] LABS: Bilirubin, Urine Neg (Neg); Blood, Urine 2+ (Neg); Glucose Qualitative, Urine Neg (Neg); Ketones, Urine 2+ (Neg); Leukocyte Esterase, Urine 1+ (Neg); Nitrite, Urine Neg (Neg); Protein, Urine 2+ (Neg); Urobilinogen, Urine NORM (Normal)
[2024-02-12] MEDS ORDERED: Melatonin 5 MG Tablet PO PRN (22:05)
[2024-02-12] MEDS ORDERED: Meclizine HCl 25 MG Tab PO PRN (22:05)
[2024-02-12 22:12] LABS: Appearance, Urine Clear (Clear); Color, Urine Pale Yellow (P-Yellow); Red Blood Cells, Urine 0-2 /hpf (0-2)
[2024-02-12 22:13] LABS: Bacteria Few /hpf; Squamous Epithelial Cells Few /hpf (Few)
[2024-02-12] MEDS ORDERED: Ketorolac Tromethamine 15mg Vial IV PRN (22:30)
[2024-02-12] MEDS ORDERED: METO25ER PO (23:03)
[2024-02-12] MEDS ORDERED: VITAMIN D350 MC3 PO (23:07)
[2024-02-12] MEDS ORDERED: VITAMIN B-122000 MC1 PO (23:08)
[2024-02-12] MEDS ORDERED: NS 250 ML IV PRN (23:15)
[2024-02-12 23:30] VITALS: BP 146/67
--- NOTE | 2024-02-13 05:52 | NUR ---
SHIFT SUMMARY PT ARRIVED FROM ER AROUND 2300. ORIENTED TO ROOM. A&Ox4 AND PLEASANT. PT REPORTS PAIN OF 4 OUT OF 10. ON 4L OF OXYGEN D/T DESATING IN ER WITH PAIN MED ADMINISTRATION. PICTURES IN CHART OF CELLULITS. IV ABX GIVEN PER EMAR. BED ALARM ON. BED IN LOWEST POSITION AND CALL LIGHT IN REACH.
[2024-02-13 05:57] LABS: BASOPHILS ABSOLUTE AUTO 0.04 K/mm3 (0.00-0.23); BASOPHILS PERCENT AUTO 0 % (0-2); EOSINOPHILS ABSOLUTE AUTO 0.52 K/mm3 (0.00-0.68); EOSINOPHILS PERCENT AUTO 4 % (0-6); Hemoglobin 10.6 g/dL (11.5-16.0); IMMATURE GRAN ABSOLUTE AUTO 0.06 K/mm3 (0.00-0.10); IMMATURE GRAN PERCENT AUTO 1 % (0-1); LYMPHOCYTES ABSOLUTE AUTO 1.18 K/mm3 (0.84-5.20); LYMPHOCYTES PERCENT AUTO 10 % (21-46); MONOCYTES ABSOLUTE AUTO 1.24 K/mm3 (0.16-1.47); MONOCYTES PERCENT AUTO 10 % (4-13); Mean Corpuscular HGB 31.1 pg (26.0-34.0); Mean Corpuscular HGB Conc 32.1 g/dL (31.5-36.5); Mean Corpuscular Volume 97 fL (80-100); Mean Platelet Volume 11.3 fL (9.1-12.4); NEUTROPHILS ABSOLUTE AUTO 8.97 K/mm3 (1.96-9.15); NEUTROPHILS PERCENT AUTO 75 % (41-73); Platelet Count 189 K/mm3 (150-400); RDW Coefficient Variation 12.4 % (11.7-14.2); RDW Standard Deviation 44.2 fL (35.1-46.3); Red Blood Cell Count 3.41 M/mm3 (3.80-5.20); White Blood Cell Count 12.01 K/mm3 (4.00-11.30)
[2024-02-13 06:03] VITALS: BP 141/65
[2024-02-13 06:30] LABS: Albumin, Blood 2.6 g/dL (3.4-5.0); Albumin/Globulin Ratio 0.8 (0.8-1.8); Bilirubin, Total 0.4 mg/dL (0.1-1.0); Bun/Creatinine Ratio 17.1 (12.0-20.0); Calcium, Blood 8.6 mg/dL (8.5-10.1); Creatinine, Blood 0.82 mg/dL (0.40-1.00); Globulin, Blood 3.3 g/dL (2.2-4.0); Magnesium, Blood 1.8 mg/dL (1.6-2.4); Potassium, Blood 4.1 mmol/L (3.5-5.5); Total Protein, Blood 5.9 g/dL (6.4-8.2)
[2024-02-13 07:29] VITALS: BP 102/53
[2024-02-13] MEDS ORDERED: AmLODIPine Besylate 5 MG Tab PO SCH (09:00)
[2024-02-13] MEDS ORDERED: Enoxaparin 40 MG/0.4 ML SYR SC SCH (09:00)
[2024-02-13] MEDS ORDERED: Losartan Potassium 50 MG Tab PO SCH (09:00)
[2024-02-13] MEDS ORDERED: Lactobacil 2-S.Thermo-Bifido 1 1 Cap PO SCH (09:00)
[2024-02-13] MEDS ORDERED: Aspirin 81 MG TabEC PO SCH (09:00)
[2024-02-13] MEDS ORDERED: Levothyroxine Sodium 0.075 MG Tab PO SCH (09:00)
[2024-02-13] MEDS ORDERED: Docusate Sodium 100 MG Cap PO SCH (09:00)
[2024-02-13] MEDS ORDERED: ClonazePAM 0.5 MG Tab PO SCH (09:00)
[2024-02-13] MEDS ORDERED: Polyethylene Glycol 3350 17 gm PO PRN (10:35)
--- NOTE | 2024-02-13 12:52 | NUR ---
Upon receiving a referral for spiritual care, I visited the patient. 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 She shares about her Chrisitan arabella and the inspiration she gains from it. I normalize her feelings and fears, reinforce helpful attitudes and practices and provided therapeutic listening, grief support and prayer. Patient responded well and showed signs of being comforted. I will continue to remain available to patient and family.
[2024-02-13 15:34] VITALS: BP 140/67
--- NOTE | 2024-02-13 17:46 | NUR ---
NO ACUTE CHANGES, AMI WOUND DRAINING SEROSAGIOUS FLUID, WARM BLANKET TO AREA, MEDICATED FOR PAIN WITH TYLENOL, ALERT AND ORIENTED X4, STAND BY ASSIST, NO BM FOR 6 DAYS, STARTED ON LIRALAX AND METAMUCIL, NO ISO NEEDED PER INFECTION CONTROL, CALL LIGHT WITH IN REACH, WILL RELAY TO PM RN
[2024-02-13 20:01] VITALS: BP 137/67
[2024-02-13] MEDS ORDERED: Vancomycin HCL 1,250 MG in NS 250 ML IV SCH (21:00)
[2024-02-13] MEDS ORDERED: Rosuvastatin Calcium 10 MG Tab PO SCH (21:00)
[2024-02-13] MEDS ORDERED: CefTRIAXone Sodium 1,000 MG in NS 100 ML IV SCH (21:00)
[2024-02-13] MEDS ORDERED: Vancomycin HCL 1,000 MG in NS 250 ML IV SCH (22:00)
[2024-02-14 02:46] VITALS: BP 132/62
[2024-02-14 05:30] LABS: BASOPHILS ABSOLUTE AUTO 0.04 K/mm3 (0.00-0.23); BASOPHILS PERCENT AUTO 0 % (0-2); EOSINOPHILS PERCENT AUTO 7 % (0-6); Hematocrit 36.3 % (33.0-51.0); Hemoglobin 11.7 g/dL (11.5-16.0); IMMATURE GRAN ABSOLUTE AUTO 0.09 K/mm3 (0.00-0.10); IMMATURE GRAN PERCENT AUTO 1 % (0-1); LYMPHOCYTES ABSOLUTE AUTO 0.97 K/mm3 (0.84-5.20); LYMPHOCYTES PERCENT AUTO 8 % (21-46); MONOCYTES ABSOLUTE AUTO 1.34 K/mm3 (0.16-1.47); MONOCYTES PERCENT AUTO 11 % (4-13); Mean Corpuscular HGB 30.9 pg (26.0-34.0); Mean Corpuscular HGB Conc 32.2 g/dL (31.5-36.5); Mean Corpuscular Volume 96 fL (80-100); Mean Platelet Volume 11.2 fL (9.1-12.4); NEUTROPHILS ABSOLUTE AUTO 8.94 K/mm3 (1.96-9.15); NEUTROPHILS PERCENT AUTO 73 % (41-73); Platelet Count 204 K/mm3 (150-400); RDW Coefficient Variation 12.2 % (11.7-14.2); RDW Standard Deviation 43.2 fL (35.1-46.3); Red Blood Cell Count 3.79 M/mm3 (3.80-5.20); White Blood Cell Count 12.18 K/mm3 (4.00-11.30)
--- NOTE | 2024-02-14 05:49 | NUR ---
SHIFT SUMMARY PT A&Ox4 AND PLEASANT. IV ABX GIVEN PER EMAR. PT MEDICATED ONCE FOR PAIN IN PERINEUM. PT HAD SLIGTLY ELEVATED TEMP OF 100.5 TYLENOL GIVEN AND TEMP CAME DOWN TO 99.5. PT REMAINED AFEBRILE FOR THE REST OF THE NIGHT. NO ACUTE CHANGES. PT CALLS APPROPRIATLY. BED ALARM ON. BED IN LOWEST POSITION AND CALL LIGHT IN REACH.
[2024-02-14 06:18] LABS: Bun/Creatinine Ratio 15.5 (12.0-20.0); C-REACTIVE PROTEIN, EXT RANGE 11.4 mg/dL (0.000-0.300); Calcium, Blood 8.9 mg/dL (8.5-10.1); Creatinine, Blood 1.03 mg/dL (0.40-1.00); Potassium, Blood 4.3 mmol/L (3.5-5.5)
[2024-02-14 07:22] VITALS: BP 142/67
[2024-02-14] MEDS ORDERED: Psyllium 1 EA Pack PO SCH (09:00)
--- NOTE | 2024-02-14 10:44 | NUR ---
DR CALVILLO RESIDENTS ROUNDED ON PATIENT FOR ABCESS, DR MESSER TO ROUND LATER
[2024-02-14 15:50] VITALS: BP 135/68
--- NOTE | 2024-02-14 18:04 | NUR ---
ALERT AND ORIENTED X4, CLEARLY MAKES NEEDS KNOWN, WAITING FOR DR MESSER TO ROUND FOR POSSIBLE I&D TOMORROW, PATIENT SHOWERED AND REPORTED THE AREA FEELING BETTER, MEDICATED FOR PAIN WITH TYLENOL AND TORADOL, CALL LIGHT WITH IN REACH, WILL RELAY TO PM RN
[2024-02-14 20:40] VITALS: BP 108/59
[2024-02-14 22:00] LABS: Vancomycin, Trough 11.2 ug/mL (5.0-10.0)
[2024-02-14] MEDS ORDERED: Vancomycin HCL 1,000 MG in NS 250 ML IV SCH (23:00)
[2024-02-15] VITALS (7 sets, daily range): BP systolic 133–154; BP diastolic 64–88
[2024-02-15] MEDS ORDERED: Vancomycin HCL 750 MG in NS 250 ML IV SCH
[2024-02-15] MEDS ORDERED: Magnesium Hydroxide Conc 10 ML UDC PO PRN (01:35)
[2024-02-15] MEDS ORDERED: Bisacodyl 10 MG Supp PR PRN (01:35)
--- NOTE | 2024-02-15 07:45 | NUR ---
TRESTLEMAN SUMMARY PT A/OX4. ABLE TO MAKE NEEDS KNOWN. PLEASANT AND COOPERATIVE. PT ABD FIRM AND DISTENDED. PT HAD SMALL BOWEL MOVEMENT LAST NIGHT--HARD AND PEBBLE. NEW ORDER FOR MOM AND SUPPOSITORY--NOT GIVEN THIS SHIFT DUE TO PT NPO AT MIDNIGHT. PT WAS PLACED NPO AT MIDNIGHT FOR POSSIBLE I&D OF PERINIUM WOUND. DR MESSER AT BED SIDE THIS MORNING--OBSERVED WOUND TO PERINIUM AND ADVISED PT I&d PROCEDURE NEEDED. PT AGREEABLE. PT MEDICATED WITH ALT TYLENOL/TORODOL FOR PAIN WITH GOOD EFFECT. CALL LIGHT ACCESSIBLE.
[2024-02-15] MEDS ORDERED: Sennosides 8.6 MG Tab PO SCH (09:00)
[2024-02-15] MEDS ORDERED: Lactated Ringer's 1,000 ML IV SCH (16:10)
--- NOTE | 2024-02-15 16:17 | NUR ---
SHIFT SUMMARY PT SLEEPING AT START OF SHIFT, BUT WOKE BY DR MESSER, JUST PRIOR TO SHIFT REPORT. DR MESSER DISCUSSED PLAN FOR I&D TODAY TO L BUTTOCK ABSCESS. PT NPO SINCE LAST NIGHT. PT UP WITH SBA USING FWW TO BTHRM NEEDED. SLEPT OFF AND ON TODAY, JUST WAITING FOR SX. OR NURSE TO RM NOW, FOR PREP, BUT MAY STILL BE A COUPLE OF HOURS. NO C/O. PT IS PLEASANT AND CO-OP WITH CARE. CALL LT IN REACH. ABLE TO MAKE NEEDS KNOWN.
[2024-02-15] MEDS ORDERED: Rocuronium Bromide 10 MG/ML 5ML Injection IV ONE (17:42)
[2024-02-15] MEDS ORDERED: SuccINYLCHOLINE Chloride 100 MG/5 ML 5MLSYR ONE (17:42)
[2024-02-15] MEDS ORDERED: Sodium Hypochlorite 0.125% 473 ML BTL TOP SCH (17:45)
[2024-02-15] MEDS ORDERED: Lactated Ringer's 1,000 ML IV ONE (17:59)
[2024-02-15] MEDS ORDERED: FentaNYL Citrate 50 MCG/ML 2 ML Injection ONE (18:23)
[2024-02-15] MEDS ORDERED: Sugammadex Sodium 200 MG/2ML SDV (100 MG/ML) ONE (18:48)
[2024-02-15] MEDS ORDERED: Ketorolac Tromethamine 30mg Vial ONE (18:48)
[2024-02-15] MEDS ORDERED: Ondansetron HCl 2 MG / ML 2ML Vial ONE (18:49)
[2024-02-15] MEDS ORDERED: Bupivacaine 0.5% HCl 5 MG/ML 30MLVIAL ONE (18:50)
[2024-02-15] MEDS ORDERED: FentaNYL Citrate 50 MCG/ML 2 ML Injection IV PRN (20:35)
--- NOTE | 2024-02-15 23:30 | NUR ---
WOUND CARE COMPLETE; OLD WOUND DRESSING AND PACKING REMOVED. WOUND IRRIGATED AND CLEANSED. 1 INCH KERLEX GAUZE MOISTENED PACKED INTO WOUND. EXUDRY TO COVER WOUND AND TAPE TO SECURE BANDAGE. PATIENT IN BED FOR WOUND CHANGE. PATIENT TOLERATED WOUND CHANGE WELL WITH MEDICATION PRIOR TO WOUND CHANGE.
[2024-02-16] MEDS ORDERED: DEXTROMETHORPHAN/BENZOCAINE 1 EACH LOZENGE MT PRN (04:05)
--- NOTE | 2024-02-16 04:33 | NUR ---
POTTERY KILN BUILDER SUMMARY PT RETURNED TO ROOM AT APPROX 1954; POST SURGICAL DEBRIDEMENT OF PERINEAL PRESSURE WOUND. PT A&O X4, PLEASANT. POST OP VS OBTAINED AND REVIEWED. PT NOTED TO DESAT TO 83-86% RA. OXYGEN ORDER OBTAINED; OXYGEN PLACED AT 2L VIA NC; SATUATATION IMPROVED AND HAS MAINTAINED >95% ON 2L VIA NC. PT C/O POST OP PAIN AT 8/10; PT MEDICATED WITH TYLENOL PRN PER EMAR ORDER; MINIMALLY EFFECTIVE. NEW ORDER OBTAINED FOR FENTANYL 25-50MCG EVERY 4 HR PRN PAIN. PT MEDICATED WITH FENTANYL PRN PER EMAR ORDER PRIOR TO DRESSING CHANGE; EFFECTIVE. PT C/O SORE THROAT POST INTUBATION. ORDER OBTAINED FOR CEPOCOL LOZENGE. PT CONTINUES ON IV ANTIBIOTICS. NO NOTED ADVERSE SIDE EFFECTS TO ABO THERAPY. NEW 20G IV PLACED IN R FOREARM. NO C/O NAUSEA POST ANESTHESIA. PT TOLERATING PO INTAKE; ATE 100% OF DINNER. PT HAS BEEN RESTING COMFORTABLY IN BED AFTER DRESSING CHANGE. PT ABLE TO MAKE NEEDS KNOWN TO STAFF. BED IN LOW POSITION; PT ABLE TO USE CALL LIGHT APPROPRIATELY.
[2024-02-16 07:45] VITALS: BP 136/58
--- NOTE | 2024-02-16 08:02 | NUR ---
THIS RN REVIEWED INKER AND OPAQUER/ORIENTEE NURSING DOCUMENATION AND ASSESSMENT OF PATIENT. THIS RN AGREES WITH INKER AND OPAQUER DOCUMENTAITON AND ASSESSMENT.
[2024-02-16 11:55] LABS: Vancomycin, Trough 21.9 ug/mL (5.0-10.0)
--- NOTE | 2024-02-16 13:28 | NUR ---
WOUND CARE PREMEDICATED PT WITH 50MCG FENTANYL, CHANGED DRESSING AND REPLACED PACKING PER ORDER. PT TOLERATED WELL. DR. MESSER SPOKE WITH PT ABOUT WOUND CARE, DIET AND ACTIVITY
[2024-02-16 15:14] VITALS: BP 159/62
[2024-02-16] MEDS ORDERED: Vancomycin HCL 750 MG in NS 250 ML IV SCH (18:00)
--- NOTE | 2024-02-16 18:29 | NUR ---
Pt A&Ox4, pleasant and cooperative with care. SBA with FWW to bathroom. 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 IV antibiotics continued. Wound care completed per order d/t soiled dressing, pt premedicated with fentanyl. Pt complained on headache later in the shift, PRN tylenol given and effective. Wound cultures came back positive for MRSA, pt on contact precautions. Pt able to make needs known, call light in reach.
[2024-02-16 20:35] VITALS: BP 163/65
[2024-02-17 04:31] VITALS: BP 153/64
[2024-02-17 05:48] LABS: BASOPHILS ABSOLUTE AUTO 0.04 K/mm3 (0.00-0.23); BASOPHILS PERCENT AUTO 1 % (0-2); EOSINOPHILS ABSOLUTE AUTO 0.88 K/mm3 (0.00-0.68); EOSINOPHILS PERCENT AUTO 12 % (0-6); Hemoglobin 12.1 g/dL (11.5-16.0); IMMATURE GRAN ABSOLUTE AUTO 0.11 K/mm3 (0.00-0.10); IMMATURE GRAN PERCENT AUTO 2 % (0-1); LYMPHOCYTES ABSOLUTE AUTO 1.47 K/mm3 (0.84-5.20); LYMPHOCYTES PERCENT AUTO 20 % (21-46); MONOCYTES ABSOLUTE AUTO 0.83 K/mm3 (0.16-1.47); MONOCYTES PERCENT AUTO 11 % (4-13); Mean Corpuscular HGB Conc 33.6 g/dL (31.5-36.5); Mean Corpuscular Volume 95 fL (80-100); NEUTROPHILS ABSOLUTE AUTO 3.97 K/mm3 (1.96-9.15); NEUTROPHILS PERCENT AUTO 54 % (41-73); RDW Coefficient Variation 12.3 % (11.7-14.2); Red Blood Cell Count 3.78 M/mm3 (3.80-5.20)
[2024-02-17 05:52] LABS: Mean Platelet Volume 11.7 fL (9.1-12.4)
[2024-02-17 05:58] LABS: Albumin, Blood 2.9 g/dL (3.4-5.0); Albumin/Globulin Ratio 0.8 (0.8-1.8); Bilirubin, Total 0.2 mg/dL (0.1-1.0); Bun/Creatinine Ratio 18.5 (12.0-20.0); Calcium, Blood 9.4 mg/dL (8.5-10.1); Creatinine, Blood 0.76 mg/dL (0.40-1.00); Globulin, Blood 3.6 g/dL (2.2-4.0); Potassium, Blood 4.4 mmol/L (3.5-5.5); Total Protein, Blood 6.5 g/dL (6.4-8.2)
[2024-02-17 06:29] LABS: Platelet Count 173 K/mm3 (150-400)
--- NOTE | 2024-02-17 06:35 | NUR ---
ADJUSTER LEADER SUMMARY PT IS A/OX4. PLEASANT AND COOPERATIVE WITH CARE. PT IS ABLE TO MAKE NEEDS KNOWN. SBA TO BATHROOM. PT REPORTING PAIN CONTROLLED WITH REST. DRESSING TO SURGICAL SITE CHANGES ONCE PER ORDER. PRE MEDICATED WITH FENTANYL--PT REPORTED 8/10 PAIN WITH DRESSING CHANGE. PAIN IMROVED AFTER DRESSING CHANGE COMPETE. CALL LIGHT ACCESSIBLE.
[2024-02-17] MEDS ORDERED: Magnesium Hydroxide Conc 10 ML UDC PO PRN (07:25)
[2024-02-17 07:54] VITALS: BP 171/83
[2024-02-17] MEDS ORDERED: Sennosides 8.6 MG Tab PO SCH (09:00)
[2024-02-17 11:48] LABS: Vancomycin, Trough 15.7 ug/mL (5.0-10.0)
[2024-02-17 16:36] VITALS: BP 152/78
--- NOTE | 2024-02-17 18:33 | NUR ---
Pt A&Ox4, pleasant and cooperative with care. No significant bowel movement in over a week, milk of magnesia, miralax, and dulcolax supository given with 3 small hard BMs this shift, good bowel sounds. Pt complained of nausea once, zofran given with good effect. IV ABX continued. Wound care completed per order, pt premedicated with 50 mcg of fentanyl before dressing change. PRN tylenol given x1 for headache. Pt walked in the halls today with SBA and FWW, fluids encouraged. Pt resting in bed, call light in reach, bed in low locked position.
[2024-02-17 20:25] VITALS: BP 150/66
[2024-02-17] MEDS ORDERED: Arginine/Glutamine/Calcium Hmb 1 Packet PO SCH (21:00)
[2024-02-18 05:17] VITALS: BP 149/61
[2024-02-18 06:22] LABS: BASOPHILS ABSOLUTE AUTO 0.05 K/mm3 (0.00-0.23); BASOPHILS PERCENT AUTO 1 % (0-2); EOSINOPHILS ABSOLUTE AUTO 0.89 K/mm3 (0.00-0.68); EOSINOPHILS PERCENT AUTO 12 % (0-6); Hematocrit 34.8 % (33.0-51.0); Hemoglobin 11.4 g/dL (11.5-16.0); IMMATURE GRAN ABSOLUTE AUTO 0.11 K/mm3 (0.00-0.10); IMMATURE GRAN PERCENT AUTO 2 % (0-1); LYMPHOCYTES ABSOLUTE AUTO 1.42 K/mm3 (0.84-5.20); LYMPHOCYTES PERCENT AUTO 20 % (21-46); MONOCYTES ABSOLUTE AUTO 0.81 K/mm3 (0.16-1.47); MONOCYTES PERCENT AUTO 11 % (4-13); Mean Corpuscular HGB 31.6 pg (26.0-34.0); Mean Corpuscular HGB Conc 32.8 g/dL (31.5-36.5); Mean Corpuscular Volume 96 fL (80-100); Mean Platelet Volume 11.7 fL (9.1-12.4); NEUTROPHILS ABSOLUTE AUTO 3.94 K/mm3 (1.96-9.15); NEUTROPHILS PERCENT AUTO 55 % (41-73); Platelet Count 287 K/mm3 (150-400); RDW Coefficient Variation 12.1 % (11.7-14.2); RDW Standard Deviation 43.1 fL (35.1-46.3); Red Blood Cell Count 3.61 M/mm3 (3.80-5.20); White Blood Cell Count 7.22 K/mm3 (4.00-11.30)
[2024-02-18 06:47] LABS: Albumin, Blood 2.9 g/dL (3.4-5.0); Albumin/Globulin Ratio 0.8 (0.8-1.8); Bilirubin, Total 0.2 mg/dL (0.1-1.0); Bun/Creatinine Ratio 23.9 (12.0-20.0); Calcium, Blood 9.4 mg/dL (8.5-10.1); Creatinine, Blood 0.79 mg/dL (0.40-1.00); Globulin, Blood 3.7 g/dL (2.2-4.0); Potassium, Blood 4.3 mmol/L (3.5-5.5); Total Protein, Blood 6.6 g/dL (6.4-8.2)
[2024-02-18 07:24] VITALS: BP 159/63
[2024-02-18] MEDS ORDERED: Polyethylene Glycol 3350 17 gm PO SCH (09:00)
[2024-02-18 16:17] VITALS: BP 150/79
--- NOTE | 2024-02-18 19:27 | NUR ---
PT QUITE PLEASNT AWAIS. SHE WANTED TO WALK HALLS AND DID SO WITH CAREN DAVILA. UNABE TO DO WOUND DRESSING CHANGE TODAY. PASSED TO NIGHT RN. PT CONTINUES TO HAVE HARD, MARBLE STOOLS TODAY. DID TREAT FOR HEADACHE THIS AM. NO OTHER NEW CONCERNS NOTED. BED IN LOW POSITION, CALL LITE IN REACH, CALLS APPROP
[2024-02-18 20:04] VITALS: BP 137/71
[2024-02-19 04:23] VITALS: BP 140/81
--- NOTE | 2024-02-19 06:36 | NUR ---
OVERHEAD LINE WORKER SUMMARY PT A/OX4. PT ABLE TO MAKE NEEDS KNOWN. CALL LIGHT ACCESSIBLE. PT AMBULATED IN ARNOLD TO ENCOURAGE BOWEL MOVEMENT. PT C/O OF NAUSEA AT BEDTIME; REQUESTED TO HOLD BOWEL MEDS. DRESSING TO I&D WOUND CHANGED; DRESSING SATURATED WITH SERSANGUINEOUS/BLOODY EXUDATE. PT PREMEDICATED WITH FENTANYL PRIOR TO DRESSING CHANGE. NOTED SMALL NONBLANCING RED TO TAILBONE AREA, COVERED WITH MEPILEX FOR PROTECTION. EDUCATED PT ON NEED FOR FREQUENT REPOSITIONING AND PRESSURE POINT/PERRI PROMINIENCE. ENSURED PT REPOSITONING T/O THE NIGHT. PT C/O PERSISTENT HEADACHE; MED WITH TYLENOL.
[2024-02-19 07:40] VITALS: BP 163/71
[2024-02-19 08:21] LABS: BASOPHILS ABSOLUTE AUTO 0.05 K/mm3 (0.00-0.23); BASOPHILS PERCENT AUTO 1 % (0-2); EOSINOPHILS ABSOLUTE AUTO 0.79 K/mm3 (0.00-0.68); EOSINOPHILS PERCENT AUTO 11 % (0-6); Hematocrit 36.2 % (33.0-51.0); Hemoglobin 11.9 g/dL (11.5-16.0); IMMATURE GRAN ABSOLUTE AUTO 0.12 K/mm3 (0.00-0.10); IMMATURE GRAN PERCENT AUTO 2 % (0-1); LYMPHOCYTES ABSOLUTE AUTO 1.27 K/mm3 (0.84-5.20); LYMPHOCYTES PERCENT AUTO 17 % (21-46); MONOCYTES ABSOLUTE AUTO 0.85 K/mm3 (0.16-1.47); MONOCYTES PERCENT AUTO 12 % (4-13); Mean Corpuscular HGB 31.4 pg (26.0-34.0); Mean Corpuscular HGB Conc 32.9 g/dL (31.5-36.5); Mean Corpuscular Volume 96 fL (80-100); Mean Platelet Volume 10.5 fL (9.1-12.4); NEUTROPHILS ABSOLUTE AUTO 4.22 K/mm3 (1.96-9.15); NEUTROPHILS PERCENT AUTO 58 % (41-73); Platelet Count 292 K/mm3 (150-400); RDW Coefficient Variation 12.1 % (11.7-14.2); RDW Standard Deviation 42.5 fL (35.1-46.3); Red Blood Cell Count 3.79 M/mm3 (3.80-5.20)
[2024-02-19 08:42] LABS: Bun/Creatinine Ratio 17.5 (12.0-20.0); Calcium, Blood 9.3 mg/dL (8.5-10.1); Creatinine, Blood 0.8 mg/dL (0.40-1.00)
[2024-02-19 15:27] VITALS: BP 127/50
--- NOTE | 2024-02-19 17:13 | NUR ---
PT PLEASNT TODAY. DID WALK ARNOLD SOME TODAY. HEADACHE TREATED THIS AM. PT REPORTS TWO B/M'S TODAY, SOFTER, BUT COULD BE BETTER. NO OTHER NEW CONCENRS NOTED. BED IN LOW POSITION, CALL LITE IN REACH, CALLS APPROP
[2024-02-19 17:43] LABS: Vancomycin, Trough 14.6 ug/mL (5.0-10.0)
--- NOTE | 2024-02-20 03:29 | NUR ---
SHIFT SUMMARY PT IS A&O X4, ABLE TO MAKE HER NEEDS KNOWN AND COOPERATIVE WITH CARE. C/O 10/23 H/A, TYLENOL PRN EFFECTIVE PER PT REPORT. NO ACUTE EVENTS DURING THIS SHIFT. BED AT THE LOWEST POSITION, CALL LIGHT W/I REACH.
[2024-02-20 04:35] VITALS: BP 140/76
[2024-02-20 05:43] LABS: BASOPHILS ABSOLUTE AUTO 0.05 K/mm3 (0.00-0.23); BASOPHILS PERCENT AUTO 1 % (0-2); EOSINOPHILS ABSOLUTE AUTO 0.89 K/mm3 (0.00-0.68); EOSINOPHILS PERCENT AUTO 12 % (0-6); Hematocrit 34.7 % (33.0-51.0); Hemoglobin 11.3 g/dL (11.5-16.0); IMMATURE GRAN ABSOLUTE AUTO 0.16 K/mm3 (0.00-0.10); IMMATURE GRAN PERCENT AUTO 2 % (0-1); LYMPHOCYTES ABSOLUTE AUTO 1.65 K/mm3 (0.84-5.20); LYMPHOCYTES PERCENT AUTO 23 % (21-46); MONOCYTES ABSOLUTE AUTO 0.83 K/mm3 (0.16-1.47); MONOCYTES PERCENT AUTO 12 % (4-13); Mean Corpuscular HGB 31.9 pg (26.0-34.0); Mean Corpuscular HGB Conc 32.6 g/dL (31.5-36.5); Mean Corpuscular Volume 98 fL (80-100); Mean Platelet Volume 10.7 fL (9.1-12.4); NEUTROPHILS ABSOLUTE AUTO 3.58 K/mm3 (1.96-9.15); NEUTROPHILS PERCENT AUTO 50 % (41-73); Platelet Count 308 K/mm3 (150-400); RDW Coefficient Variation 11.9 % (11.7-14.2); RDW Standard Deviation 43.8 fL (35.1-46.3); Red Blood Cell Count 3.54 M/mm3 (3.80-5.20); White Blood Cell Count 7.16 K/mm3 (4.00-11.30)
[2024-02-20 06:22] LABS: Bun/Creatinine Ratio 17.1 (12.0-20.0); Calcium, Blood 9.3 mg/dL (8.5-10.1); Creatinine, Blood 0.88 mg/dL (0.40-1.00); Potassium, Blood 4.2 mmol/L (3.5-5.5)
[2024-02-20 07:20] VITALS: BP 152/70
[2024-02-20 15:35] VITALS: BP 150/63
--- NOTE | 2024-02-20 17:47 | NUR ---
SHIFT SUMMARY PATIENT A/OX4, ABLE TO MAKE NEEDS KNOWN, INDEPENDENT IN ROOM WITH AMBULATION. PLEASANT AND COOPERATIVE WITH CARE. PATIENT COMPLAINING OF HEADACHE THIS AFTERNOON, TYLENOL EFFECTIVE IN PAIN MANAGEMENT. DRESSING TO COCCYX/PERINEAL AREA REINFORCED WITH MEPILEX, REMAINS C/D/I. IV VANCO ADMINISTERED PER JUN. PATIENT PARTICIPATED WITH PHYSICAL THERAPY TODAY. NO OTHER CONCERNS AT THIS TIME. CONSIDERING SNF PLACEMENT FOR WOUND CARE DUE TO PATIENT LIVING ALONE AND NEEDING DAILY WOUND CARE SHE IS UNABLE TO PROVIDE FOR HERSELF.
[2024-02-20 19:41] VITALS: BP 151/67
--- NOTE | 2024-02-21 02:56 | NUR ---
SHIFT SUMMARY NO ACUTE DISTRESS/EVENTS DURING THIS SHIFT. PT C/O HEADACHE, MEDICATED PER EMAR WITH TYLENOL PRN X1. PT IS A&O X4, ABLE TO MAKE HER NEEDS KNOWN. BED AT THE LOWEST POSITION, CALL LIGHT W/I REACH.
[2024-02-21 05:27] VITALS: BP 152/75
[2024-02-21 06:32] LABS: BASOPHILS ABSOLUTE AUTO 0.06 K/mm3 (0.00-0.23); BASOPHILS PERCENT AUTO 1 % (0-2); EOSINOPHILS ABSOLUTE AUTO 0.82 K/mm3 (0.00-0.68); EOSINOPHILS PERCENT AUTO 10 % (0-6); Hematocrit 34.9 % (33.0-51.0); Hemoglobin 11.6 g/dL (11.5-16.0); IMMATURE GRAN ABSOLUTE AUTO 0.14 K/mm3 (0.00-0.10); IMMATURE GRAN PERCENT AUTO 2 % (0-1); LYMPHOCYTES ABSOLUTE AUTO 1.52 K/mm3 (0.84-5.20); LYMPHOCYTES PERCENT AUTO 19 % (21-46); MONOCYTES ABSOLUTE AUTO 0.93 K/mm3 (0.16-1.47); MONOCYTES PERCENT AUTO 11 % (4-13); Mean Corpuscular HGB 31.9 pg (26.0-34.0); Mean Corpuscular HGB Conc 33.2 g/dL (31.5-36.5); Mean Corpuscular Volume 96 fL (80-100); Mean Platelet Volume 11.1 fL (9.1-12.4); NEUTROPHILS ABSOLUTE AUTO 4.71 K/mm3 (1.96-9.15); NEUTROPHILS PERCENT AUTO 58 % (41-73); Platelet Count 329 K/mm3 (150-400); RDW Coefficient Variation 12.1 % (11.7-14.2); RDW Standard Deviation 42.5 fL (35.1-46.3); Red Blood Cell Count 3.64 M/mm3 (3.80-5.20); White Blood Cell Count 8.18 K/mm3 (4.00-11.30)
[2024-02-21 07:04] LABS: Bun/Creatinine Ratio 15.6 (12.0-20.0); Calcium, Blood 9.4 mg/dL (8.5-10.1); Creatinine, Blood 0.9 mg/dL (0.40-1.00); Potassium, Blood 3.9 mmol/L (3.5-5.5)
[2024-02-21 07:11] VITALS: BP 151/59
--- NOTE | 2024-02-21 12:02 | NUR ---
Patient is lying in bed and alert. She tells me about the struggles and the joys of her life, career and family. She expresses grattitude for the wonderful care she has received, for the fact that she can D/C home and not have to go to a SNF and for how much better she feels today. I provided therapeutic listening and prayer. Patient responded well and showed signs of an elevated mood and reduced stress.
[2024-02-21 15:28] VITALS: BP 149/71
--- NOTE | 2024-02-21 18:37 | NUR ---
SHIFT SUMMARY PATIENT A/OX4, PLEASANT AND COOPERATIVE WITH CARE, ABLE TO MAKE NEEDS KNOWN. MD ASSESSED PATIENT'S WOUND AND PROVIDED WOUND CARE THIS AM, WOUND CARE WAS PROVIDED AGAIN IN THE AFTERNOON POST PATIENT SHOWERING. PATIENT COMPLAINED OF HEADACHE THIS MORNING, PRN TYLENOL ADMINISTERED. ALSO COMPLAINING OF NAUSEA THIS AFTERNOON, PRN ZOFRAN ADMINISTERED. FENTANYL ADMINISTERD, PER MAR PRIOR TO SECOND DRESSING CHANGE, EFFECTIVE IN MANAGING PAIN WHILE PACKING WOUND BED. PATIENT PLANS TO DISCHARGE TO SNF, [facility]. PATIENT STATES SHE HAS NO ONE WHO WHOULD BE ABLE TO HELP HER CHANGE HER WOUND DRESSINGS DAILY. NO OTHER CONCERNS AT THIS TIME.
[2024-02-21 19:30] VITALS: BP 134/87
--- NOTE | 2024-02-22 03:25 | NUR ---
SHIFT SUMMARY NO ACUTE EVENTS DURING THIS SHIFT. MEDICATED FOR C/O H/A 10/23 WITH PRN TYLENOL X1. BED AT THE LOWEST POSITION, CALL LIGHT W/I REACH. PT IS ABLE TO MAKE HER NEEDS KNOWN, AND COOPERATIVE WITH CARE.
[2024-02-22 03:44] VITALS: BP 151/62
[2024-02-22 05:15] LABS: BASOPHILS ABSOLUTE AUTO 0.07 K/mm3 (0.00-0.23); BASOPHILS PERCENT AUTO 1 % (0-2); EOSINOPHILS ABSOLUTE AUTO 0.71 K/mm3 (0.00-0.68); EOSINOPHILS PERCENT AUTO 9 % (0-6); Hematocrit 33.3 % (33.0-51.0); IMMATURE GRAN ABSOLUTE AUTO 0.15 K/mm3 (0.00-0.10); IMMATURE GRAN PERCENT AUTO 2 % (0-1); LYMPHOCYTES ABSOLUTE AUTO 1.98 K/mm3 (0.84-5.20); LYMPHOCYTES PERCENT AUTO 26 % (21-46); MONOCYTES ABSOLUTE AUTO 0.93 K/mm3 (0.16-1.47); MONOCYTES PERCENT AUTO 12 % (4-13); Mean Corpuscular HGB 31.5 pg (26.0-34.0); Mean Corpuscular Volume 95 fL (80-100); Mean Platelet Volume 10.6 fL (9.1-12.4); NEUTROPHILS ABSOLUTE AUTO 3.91 K/mm3 (1.96-9.15); NEUTROPHILS PERCENT AUTO 51 % (41-73); Platelet Count 324 K/mm3 (150-400); RDW Coefficient Variation 12.2 % (11.7-14.2); RDW Standard Deviation 42.5 fL (35.1-46.3); Red Blood Cell Count 3.49 M/mm3 (3.80-5.20); White Blood Cell Count 7.75 K/mm3 (4.00-11.30)
[2024-02-22 05:51] LABS: Bun/Creatinine Ratio 17.3 (12.0-20.0); Calcium, Blood 9.2 mg/dL (8.5-10.1); Creatinine, Blood 1.04 mg/dL (0.40-1.00)
[2024-02-22 07:29] VITALS: BP 147/58
[2024-02-22] MEDS ORDERED: TraMADol HCl 50 MG Tab PO PRN (12:25)
[2024-02-22] MEDS ORDERED: JUVEN PACKET1 EAC3 PO (14:42)
[2024-02-22] MEDS ORDERED: Acetaminophen650 M1 PO (14:42)
[2024-02-22] MEDS ORDERED: MIRALAX1714 PO (14:43)
[2024-02-22] MEDS ORDERED: TRAM50 PO (14:44)
[2024-02-22] MEDS ORDERED: METAMUCIL POWD798 GM PO (14:44)
[2024-02-22] MEDS ORDERED: PROBIOTIC1 EA14 PO (14:45)
--- NOTE | 2024-02-22 16:16 | NUR ---
DISCHARGE NOTE MS HAWKINS WAS DISCHARGED HOME AT 1550, WHEELCHAIR ASSISTANCE TO MEET HER FRIEND/VEHICLE AT HOSPITAL ENTRANCE. MS HAWKINS VERBALISED UNDERSTANING OF DISCHARGE INSTRUCTIONS. MEDS FAXED TO [facility] AND DR DESAI IS CALLING IN TRAMADOL PRESCRIPTION. DRESSING CHANGE WAS DONE AFTER TRAMADOL TODAY AND PT TOLERATED IT WELL. PHOTO TAKEN TODAY. MODERATE YELLOW NON ODOROUS EXUDATE. WOUND APPROX 1CM DEEP, APPROX 2CM ROUND. PT SAID SHE MAY HAVE HELP WITH THE WOUND CARE THIS WEEKEND, BUT OTHERWISE SHE SAID SHE THINKS THAT SHE CAN MANAGE. SHE WAS UNABLE TO PRACTICE DOING THE DRESSING HERSELF HERE THERE WAS NO MIRROR AVAILABLE TO BE ABLE TO SEE THE WOUND. NO NEW QUESTIONS OR CONCERNS AT TIME OF DISCHARGE.
== END 2024-02-22 16:51 | disposition home health service (06) | DRG 853 ==
LOC: ER 13:37 → MEDS 21:54
PROVIDERS: Emergency Medicine; Family Medicine; Hospitalist; Internal Medicine; Physician Assistant; Surgery; ADMIT Student in an Organized Health Care Education/Training Program
PROC: 3E03329 Introduction of Other Anti-infective into Peripheral Vein, Percutaneous Approach (ICD-10-PCS; 2024-02-12)
PROC: 0JBB0ZZ Excision of Perineum Subcutaneous Tissue and Fascia, Open Approach (ICD-10-PCS; principal; 2024-02-15 16:30)
DX: A41.02 Sepsis due to Methicillin resistant Staphylococcus aureus (principal); L89.894 Pressure ulcer of other site, stage 4; L03.116 Cellulitis of left lower limb; L03.315 Cellulitis of perineum; N39.0 Urinary tract infection, site not specified; I96 Gangrene, not elsewhere classified; L02.215 Cutaneous abscess of perineum; N17.9 Acute kidney failure, unspecified; Z66 Do not resuscitate; E03.9 Hypothyroidism, unspecified; E78.5 Hyperlipidemia, unspecified; K21.9 Gastro-esophageal reflux disease without esophagitis; M81.0 Age-related osteoporosis without current pathological fracture; I12.9 Hypertensive chronic kidney disease with stage 1 through stage 4 chronic kidney disease, or unspecified chronic kidney disease; N18.30 Chronic kidney disease, stage 3 unspecified; K61.39 Other ischiorectal abscess; R42 Dizziness and giddiness; T50.915A Adverse effect of multiple unspecified drugs, medicaments and biological substances, initial encounter; K59.00 Constipation, unspecified; Z88.8 Allergy status to other drugs, medicaments and biological substances; Z88.2 Allergy status to sulfonamides; Z88.5 Allergy status to narcotic agent; Z79.82 Long term (current) use of aspirin; Z79.899 Other long term (current) drug therapy; Z79.890 Hormone replacement therapy; Z87.19 Personal history of other diseases of the digestive system; Z90.12 Acquired absence of left breast and nipple
CPT/HCPCS: 36415; 72193; 80048; 80053; 80202; 81001; 82565; 83605; 83735; 85025; 85651; 86140; 87040; 87070; 87075; 87077; 87086; 87147; 87186; 87205; 94760; 96374-59; 96375-59; 97110; 97116; 97161; 97530; 99284-25; A9270; J0330; J0696; J1650; J1885; J2270; J2405; J3010; J3370; J7050; J7120; Q9967

== ENCOUNTER 2024-03-10 02:41 | Day surgery (SDC) | payer MEDICARE, OTHER ==
[~2024-03-10 02:41] MED LIST changes: +Acetaminophen650 M1 PO; +JUVEN PACKET1 EAC3 PO; +METAMUCIL POWD798 GM PO; +METO25ER PO; +MIRALAX1714 PO; +PROBIOTIC1 EA14 PO; +TRAM50 PO; +VITAMIN B-122000 MC1 PO; +VITAMIN D350 MC3 PO
[2024-03-10] MEDS ORDERED: Silver Nitr/Potassium Nitrate 1 EA APPL ONE (11:24)
[2024-03-10] MEDS ORDERED: Lidocaine HCl 4% Cream 5 GM ONE (11:24)
== END 2024-03-10 23:17 | disposition home or self-care (01) ==
LOC: WOUND 02:41
DX: L89.323 Pressure ulcer of left buttock, stage 3 (principal)
CPT/HCPCS: A9270

== ENCOUNTER 2024-03-17 01:25 | Day surgery (SDC) | payer MEDICARE, OTHER ==
[2024-03-17] MEDS ORDERED: Lidocaine HCl 4% Cream 5 GM ONE (15:10)
== END 2024-03-17 23:00 | disposition home or self-care (01) ==
LOC: WOUND 01:25
DX: L89.323 Pressure ulcer of left buttock, stage 3 (principal); T81.31XA Disruption of external operation (surgical) wound, not elsewhere classified, initial encounter
CPT/HCPCS: A9270; G0463

== ENCOUNTER 2024-03-24 05:43 | Day surgery (SDC) | payer MEDICARE, OTHER ==
[2024-03-24] MEDS ORDERED: Lidocaine HCl 4% Cream 5 GM ONE (11:00)
== END 2024-03-24 23:00 | disposition home or self-care (01) ==
LOC: WOUND 05:43
DX: L89.323 Pressure ulcer of left buttock, stage 3 (principal)
CPT/HCPCS: A9270; G0463

== ENCOUNTER 2024-03-31 03:16 | Day surgery (SDC) | payer MEDICARE, OTHER | END 2024-03-31 23:00 | disposition home or self-care (01) | LOC: WOUND 03:16 | DX: L89.323 Pressure ulcer of left buttock, stage 3 (principal); T81.31XS Disruption of external operation (surgical) wound, not elsewhere classified, sequela; Y83.8 Other surgical procedures as the cause of abnormal reaction of the patient, or of later complication, without mention of misadventure at the time of the procedure | CPT/HCPCS: G0463 ==